=== PATIENT | male | born 2000 | race Caucasian/White ===

== ENCOUNTER 2019-10-30 15:59 | Emergency (ER) | payer BC ==
[~2019-10-30] VITALS: Ht 180.3 cm; Wt 90.7 kg
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
--- NOTE | 2019-10-30 16:40 | NUR ---
SECURITY AT BEDSIDE FOR WANDING
[2019-10-30 16:52] LABS: BASOPHILS % (AUTO) 0.4 % (0.0-2.0); CALCIUM, SERUM 9.2 mg/dL (8.5-10.1); CARBON DIOXIDE 28 mmol/L (21-32); CHLORIDE 104 mmol/L (98-107); CREATININE 1.1 mg/dL (0.6-1.3); EOSINOPHILS % (AUTO) 0.7 % (0.0-6.0); GLUCOSE 94 mg/dL (74-106); HEMATOCRIT 42 % (39-51); HEMOGLOBIN 14.4 g/dL (13.5-17.5); MEAN CORPUSCULAR HGB CONC 35 g/dl (31.0-36.0); MEAN CORPUSCULAR VOLUME 92 fL (80-96); MONOCYTES # (AUTO) 0.4 /CMM (0.1-1.30); MONOCYTES % (AUTO) 7.8 % (2.0-12.0); NEUTROPHILS # (AUTO) 3.7 /CMM (1.8-8.9); NEUTROPHILS % (AUTO) 71.1 % (43.0-81.0); PLATELET COUNT (AUTO) 222 /CMM (150-450); POTASSIUM 3.3 mmol/L (3.5-5.1); RED BLOOD CELL COUNT(AUTO) 4.54 MIL/uL (4.5-6.0); SODIUM SERUM 142 mmol/L (136-145); UREA NITROGEN, BLOOD 16 mg/dL (7-18); WHITE BLOOD COUNT (AUTO) 5.2 K/uL (4.3-11.0)
[2019-10-30 16:57] LABS: APPEARANCE,URINE Clear (CLEAR); BILIRUBIN,URINE SMALL (NEGATIVE); BLOOD, URINE Negative Ery/uL (NEGATIVE); COLOR,URINE Yellow (YELLOW); KETONES,URINE 15 (NEGATIVE); LEUKOCYTE ESTERASE ,URINE Negative (NEGATIVE); NITRITE, URINE Negative (NEGATIVE); PH,URINE 6.5 (5.0-8.0); PROTEIN,URINE 30 mg/dl (NEGATIVE); UGLUCOSE Negative (NEGATIVE)
[2019-10-30 16:58] LABS: ALANINE AMINOTRANSFERASE 14 U/L (12-78); ALBUMIN 4.9 g/dL (3.4-5.0); ALCOHOL, BLOOD < 3 mg/dL (0-0); ALKALINE PHOSPHATASE 61 U/L (46-116); ASPARTATE AMINOTRANSFERASE 15 U/L (15-37); BILIRUBIN,DIRECT 0.2 mg/dL (0.0-0.2); BILIRUBIN,TOTAL 0.7 mg/dL (0.2-1.0)
[2019-10-30 16:59] LABS: BACTERIA,URINE Rare /HPF (None Seen); RBC,URINE NONE SEEN /HPF (0-2); SQUAMOUS EPITHELIAL CELL,UR Few /HPF (None Seen); WBC,URINE NONE SEEN /HPF (0-3)
[2019-10-30 17:04] LABS: SALICYLATE 1.4 mg/dL (2.8-20.0)
[2019-10-30 17:05] LABS: ACETAMINOPHEN < 2 ug/ml (10-30)
--- NOTE | 2019-10-30 17:43 | NUR ---
VAMSI COLLINS [phone]
--- NOTE | 2019-10-30 18:05 | NUR ---
Noe garcía in [facility] - 10/30/19 at 1806 by ANDREW PEGGY [phone]
--- NOTE | 2019-10-30 18:06 | NUR ---
PEGGY (PT'S MOM) [phone]
--- NOTE | 2019-10-30 18:08 | NUR ---
[facility] [phone]
[2019-10-30] MEDS ORDERED: ACETAMINOPHEN ES 500 MG TABLET ONE (18:36)
--- NOTE | 2019-10-30 18:52 | NUR ---
DENNIS, CRISIS TEAM JIG BORER AT BEDSIDE
[2019-10-30] MEDS ORDERED: ACETAMINOPHEN 325 MG TABLET PO ONE (19:00)
[2019-10-30 19:58] VITALS: BP 132/81
--- NOTE | 2019-10-30 20:47 | NUR ---
REPORT GIVEN TO DELMA MCGOWAN [place] [id number] XAVIER
--- NOTE | 2019-10-30 20:55 | NUR ---
[facility] CALLED FOR TRANSPORT. ETA [phone]
--- NOTE | 2019-10-30 21:10 | NUR ---
PT RESTING COMFORTABLY IN BED. VSS. NO ACUTE DISTRESS NOTED. SITTER AT BEDSIDE FOR SAFETY
--- NOTE | 2019-10-30 21:31 | NUR ---
REPORT GIVEN TO EMS. PT STABLE FOR TRANSFER
== END 2019-10-30 21:39 ==
LOC: ER 16:01
DX: S10.81XA Abrasion of other specified part of neck, initial encounter (principal); R45.851 Suicidal ideations; F32.9 Major depressive disorder, single episode, unspecified; X78.8XXA Intentional self-harm by other sharp object, initial encounter; Y93.89 Activity, other specified; Y92.89 Other specified places as the place of occurrence of the external cause; Y99.8 Other external cause status
CPT/HCPCS: 36415; 80048; 80076; 80305; 80307; 80329; 81001; 85025; 99285; G0480; 81000-TC